=== PATIENT | female | born 1965 | race Caucasian/White ===

== ENCOUNTER 2024-05-10 12:07 | Observation (INO) | payer OTHER, SELFPAY ==
[2024-05-10] VITALS (39 sets, daily range): BP systolic 107–258; BP diastolic 69–113; PULSE 89–122; RESP 11–25; TEMP 36.6–36.8; O2SAT 94–100; BMI 31.5
--- NOTE | ~2024-05-10 | XR_ITS ---
Portable chest x-ray Comparison: None Clinical History: Dizziness Findings: Lungs are clear, without focal consolidation or pleural effusion. Cardiomediastinal silho uette is unremarkable. Bones and soft tissues are unremarkable. Impression: Normal chest. Reviewed, dictated and finalized at location . Impression: Normal chest.
--- NOTE | ~2024-05-10 | CT_ITS ---
EXAMINATION: CTA brain carotid DATE: 05/11/2024 15:06 INDICATION: dizziness, HTN TECHNIQUE: Computed tomographic angiography (CTA) of the head was performed without and with 100 mL O mnipaque-350 intravenous contrast. CTA of the neck was performed with intravenous contrast. Automated exposure control and iterative reconstruction technique were employed. The dose-length product was 1 737.71 mGy-cm. Maximum intensity projection and volume rendered 3D-reconstructions were created by mary jo corbin technologist on a separate workstation. COMPARISON: CT brain 05/10/2024. FINDINGS: CT BRAIN: No acute large vessel infarct, intracranial hemorrhage, mass, or hydrocephalus. Mild atrophy and spool salvager ankur white matter change. Sphenoid air-fluid levels. CTA HEAD: No large vessel occlusion, aneurysm, high flow vascular malformation, nidus or extravasation. Moderat e bilateral cavernous carotid atherosclerotic calcifications. Scattered short segment mild stenoses i n the bilateral proximal MCAs and kindergarten teacher. Persistent origin of the left BALL POINTS INSPECTOR. Calcified bilateral intradural vertebral artery calcifications without severe stenosis. Symmetric parenchymal enhancement . Patent cerebral veins. CTA NECK: Aortic arch and proximal great vessels: Normal arch anatomy. Minimal arch calcification.. Right common carotid, carotid bifurcation, and internal carotid artery: Moderate calcification at the bifurcation.There is 0% stenosis of the proximal right internal carotid artery relative to normal di stal artery lumen diameter (NASCET criteria). Left common carotid, carotid bifurcation, and internal carotid artery: Mild calcification at the bifu rcation.There is 0% stenosis of the proximal left internal carotid artery relative to normal distal a rtery lumen diameter (NASCET criteria). Vertebral arteries: No significant plaque or stenosis. Vertebral arteries co-dominant. Other findings: Periodontal disease. Cervical spondylosis. IMPRESSION: No acute large vessel infarct or intracranial hemorrhage. Sphenoid sinus air-fluid levels, may reflect acute sinusitis in the appropriate clinical context. No large vessel intracranial occlusion, high-grade intracranial stenosis, or aneurysm. No carotid or vertebral artery occlusion, dissection, or significant stenosis. Reviewed, dictated and finalized at location K. IMPRESSION: No acute large vessel infarct or intracranial hemorrhage. Sphenoid sinus air-fluid levels, may reflect acute sinusitis in the appropriate clinical context. No large vessel intracranial occlusion, high-grade intracranial stenosis, or an eurysm. No carotid or vertebral artery occlusion, dissection, or significant stenosis.
--- NOTE | ~2024-05-10 | CT_ITS ---
Non-contrast Head CT History: Dizziness Technique: Axial non-contrast imaging of the brain was performed. Dose reduction technique was used on this scan by utilizing automated exposure control and iterative reconstruction technique. The dose -length product (DLP) was 681.00 mGy-cm. Findings: There is no evidence of intracranial hemorrhage, mass lesion, or acute infarct. Brain par enchyma appears normal. The ventricles and subarachnoid spaces are normal in size. The calvarium ap pears normal. The visualized paranasal sinuses and mastoid air cells are clear. Impression: No significant abnormality seen. Reviewed, dictated and finalized at location . Impression: No significant abnormality seen.
--- NOTE | 2024-05-10 12:08 | ECG_ITS ---
Test Date: 2024-05-10 12:18:03 Measurements Intervals [place] Rate: 118 P: 46 MT: 116 QRS: 8 QRSD: 102 T: 56 QT: 343 QTc: 482 Interpretive Statements SINUS TACHYCARDIA WITH SHORT MT INTERVAL VOLTAGE CRITERIA FOR LVH [MEETS CRITERIA IN ONE OF: R(aVL), S(V1), R(V5), R(V5/V6)+S(V1)] ABNORMAL ECG No previous ECG available for comparison Electronically Signed On 05-13-2024 07:33:02 CDT by Bartolo Rodriguez M.D.
[2024-05-10 12:15] LABS: Glucose Point of Care > 450 mg/dl (65-105)
--- NOTE | 2024-05-10 12:15 | ED.DIZZY ---
HPI - Dizziness General Chief Complaint: Dizziness Stated Complaint: dizzy Time Seen by Provider: 05/10/24 12:08 Source: patient and family Mode of arrival: ambulatory Limitations: no limitations History of Present Illness HPI Narrative: Patient is a 63-year-old female with dizziness for the past 3 days. She comes to the ER for continued symptoms. No neurological complaints. She does have diabetes and hypertension in the past and has not seen a doctor for many years. She has noncompliance with follow-up and medications. She has a history of vertigo. MD elicited complaint: dizziness ( Patient gets dizziness when moving but better when still) and vertigo Pertinent past history: other ( hypertension, diabetes type 2 (noncompliant)) Onset (ago): day(s) (3) Timing: gradual onset Severity: mild Description: sense of movement and room spinning Context: other ( patient is noncompliant with her medications and not seen a doctor for many years) History of similar symptoms: Yes ( history of vertigo) Exacerbating factors: change in body position and other ( noncompliant with medications) Relieving factors: remaining still Associated symptoms: denies other symptoms Related Data Home Medications Medication Instructions Recorded Confirmed carvedilol 6.25 mg tablet 6.25 mg PO Q12H 08/13/19 ferrous sulfate 325 mg (65 mg 325 mg PO BID 08/13/19 iron) tablet Allergies Allergy/AdvReac Type Severity Reaction Status Date / Time ampicillin Allergy Unknown Verified 05/10/24 14:06 Review of Systems Review of Systems: All systems reviewed & are unremarkable except as noted in HPI and below Constitutional: Constitutional: Reports no additional constitutional complaints Eyes: Eyes: Reports no additional eye complaints ENT: Reports system reviewed and no additional complaints, except as documented Cardiovascular: Cardiovascular: Reports no additional cardiovascular complaints Respiratory: Respiratory: Reports no additional respiratory complaints Gastrointestinal: Gastrointestinal: Reports no additional gastrointestinal complaints Genitourinary: Genitourinary: Reports no additional female genitourinary complaints Musculoskeletal: Musculoskeletal: Reports no additional musculoskeletal complaints Integumentary/Breasts: Skin/Breast: Reports system reviewed and no additional complaints, except as docu Neurologic: Reports system reviewed and no additional complaints, except as documented Psychiatric: Psychiatric: Reports no additional psychiatric complaints Endocrine: Endocrine: Reports no additional endocrine complaints Hematologic/Lymphatic: Hematologic/Lymphatic: Reports no additional hematologic/lymphatic complaints Allergic/Immunologic: Allergic/Immunologic: Reports no additional allergic/immunologic complaints [facility] Family History Family History (System 05/10/24 @ 14:06 by Meg Menard) Father Diabetes mellitus Mother Family history of blood dyscrasia Exam Const: General: healthy appearing Nutritional Appearance: well nourished Orientation/consciousness: patient oriented x3 Limitations: no limitations HENMT: Head: normal to inspection Ears: TM's normal bilaterally Face/Nose/Sinus: Normal external nose present Eyes: Conjunctivae: conjunctivae normal Pupils: Equal, round and reactive pupils present EOM: EOMs intact bilaterally Neck: Neck: normal visual inspection Chest: Chest palpation & inspection: normal inspection of the chest Resp: Effort & Inspection: normal respiratory effort and not labored Auscultation: clear to auscultation bilaterally and no crackles Cardio: Rate: tachycardic Rhythm: regular rhythm Heart sounds: no murmurs GI: Inspection: non-distended GI Palp: Yes Soft to palpation, No Tenderness to palpation present (GI) and No Guarding due to palpation present (GI) Auscultation: normal bowel sounds : General: Yes bladder normal to palpation Back/Spine/Pelvis: Back: no CV
[2024-05-10] MEDS: SODIUM CHLORIDE 0.9% IV 1,000 ML 999 ML IV CONT (12:34)
[2024-05-10] MEDS: INSULIN HUMAN REGULAR (*BKC) 1,000 UNITS/10 ML VIAL 8 UNITS IV PUSH (12:37)
--- NOTE | 2024-05-10 12:40 | PC.NURSE ---
ERP notified patient's blood pressure was found 107 systolic. Rechecked and showed 203. Patient's heart rate has decreased and dizziness is resolved. ERP states to hold on blood pressure medication and re-evaluate when patient has been resting for a few minutes after she returns from bathroom and CT.
[2024-05-10 12:50] LABS: Basophils Absolute Auto 0.07 K/mm3 (0.00-0.10); Basophils Percent Auto 0.6 % (0.0-1.0); Eosinophils Absolute Auto 0.31 K/mm3 (0.02-0.50); Eosinophils Percent Auto 2.9 % (1.0-6.0); Hematocrit 44.5 % (35.0-49.0); Hemoglobin 14.1 g/dL (12.0-15.0); Immature Granulocyte Absolute 0.04 K/mm3 (0.00-0.00); Immature Granulocyte Percent A 0.4 % (0.0-0.0); Lymphocytes Absolute Auto 1.73 K/mm3 (1.10-4.50); Mean Corpuscular HGB Conc 31.7 g/dL (32-36); Mean Corpuscular Hemoglobin 29.7 pg (27.0-31.0); Mean Corpuscular Volume 93.7 fL (78.0-102.0); Mean Platelet Volume 12.7 fl (9.2-11.8); Monocytes Absolute Auto 0.78 K/mm3 (0.10-0.90); Monocytes Percent Auto 7.2 % (2.0-11.0); Neutrophils Absolute Auto 7.86 K/mm3 (1.70-7.20); Neutrophils Percent Auto 72.9 % (50.0-70.0); Platelet Count Result 225 K/mm3 (150-420); Red Blood Count 4.75 M/mm3 (4.20-5.40); Red Cell Distribution Width 12.3 % (11.6-14.4); White Blood Count 10.8 K/mm3 (4.8-10.8)
--- NOTE | 2024-05-10 12:57 | PC.NURSE ---
Patient taken down to CT
[2024-05-10 13:00] LABS: Acetone Negative (Negative)
[2024-05-10 13:00] LABS: Add Urine Microscopic? YES; Appearance Urine Clear (Clear); Bilirubin Urine Negative (Negative); Blood Urine Trace-intact (Negative); Color Urine Light Yellow (Yellow); Glucose Urine UA 3+ (Negative); Ketones Urine Trace (Negative); Leukocyte Esterase Ur Negative LEU/UL (Negative); Nitrate Urine Negative (Negative); Protein Urine 2+ (Negative); Urobilinogen Urine 0.2 mg/dL (0.2-1.0); pH Urine 5.5 (5.0-8.0)
[2024-05-10 13:07] LABS: Bacteria Urine Trace /hpf; RBC Urine 0-2 /hpf (0-2); Squamous Epithelial Cell Urine Moderate /hpf (Few); WBC Urine None seen /hpf (0-3)
[2024-05-10 13:09] LABS: Alanine Aminotransferase 30 U/L (14-59); Alkaline Phosphatase 98 U/L (46-116); Anion Gap 10 mmol/L (4-12); Aspartate Amino Transferase 20 U/L (15-37); Bilirubin,Total 0.4 mg/dL (0.00-1.00); Blood Urea Nitrogen 22 mg/dL (7-18); Calcium 9.4 mg/dL (8.5-10.1); Carbon Dioxide 26 mmol/L (21-32); Chloride 98 mmol/L (98-108); Estimated CRCL calculation 37 ml/min; Estimated Glomerular Filt Rate 37; Osmolality Calculated 301 mOsm/kg (285-295); Potassium 3.7 mmol/L (3.5-5.1); Sodium 134 mmol/L (136-145); Troponin I 12.9 ng/L (0.00-60.4)
[2024-05-10 13:10] LABS: Glucose 466 mg/dL (70-99)
[2024-05-10 13:16] LABS: Lactic Acid Reflex 1.5 mmol/L (0.4-2.0)
[2024-05-10 14:20] LABS: Glucose Point of Care 338 mg/dl (65-105)
[2024-05-10 14:20] LABS: Glucose Point of Care 414 mg/dl (65-105)
[2024-05-10 14:35] LABS: Glucose Point of Care 347 mg/dl (65-105)
[2024-05-10 15:40] LABS: Hemoglobin A1C > 13.7 % (<5.7)
--- NOTE | 2024-05-10 16:15 | ADMGEN ---
This patient, Sav Gonsalez, was admitted to 2nd Floor Room 209-1. Patient/family oriented to hospital policies and general routines including ID bracelet, bed and alarms, visiting hours, pain management, procedures, bathroom and other care routines, personal items, smoking policy, room service/diet, and visiting hours. Pt requests info on pcp in the area as she has not seen a doctor since moving here in 2019. Family in room, glasses were left at home. Pt has her phone, pjs and house slippers Information on how to activate the Rapid Response Team has been discussed. Patient/Family are encouraged to report perceived risks to care and to ask questions if they do not understand what they are told or what they should do.
[2024-05-10 16:35] LABS: Glucose Point of Care 317 mg/dl (65-105)
[2024-05-10] MEDS: LOSARTAN POTASSIUM 25 MG TABLET PO (18:32)
[2024-05-10 19:19] LABS: Cholesterol 334 mg/dL (0-200); HDL Direct 49 mg/dL (40-60); LDL Cholesterol Calculated 216 mg/dL (<130); Triglycerides 347 mg/dL (0-150)
[2024-05-10 19:48] LABS: Thyroid Stimulating Hormone 2.24 uIU/mL (0.36-3.74)
[2024-05-10] MEDS: INSULIN GLARGINE (*BKC) 1,000 UNITS/10 ML VIAL 15 UNITS SUB-Q (20:57)
[2024-05-10 21:01] LABS: Glucose Point of Care 341 mg/dl (65-105)
[2024-05-10] MEDS: hydrALAZINE HCL 20 MG/ML VIAL 10 MG IV PUSH (21:03)
[2024-05-11] VITALS (9 sets, daily range): BP systolic 160–189; BP diastolic 77–86; PULSE 84–100; RESP 15–18; TEMP 36.2–36.6; O2SAT 96–98
[2024-05-11] MEDS: LOSARTAN POTASSIUM 25 MG TABLET PO (00:15)
[2024-05-11 00:25] LABS: Glucose Point of Care 300 mg/dl (65-105)
--- NOTE | 2024-05-11 01:12 | PC.NURSE ---
Attempted to contact AUTOMATIC LEHR OPERATOR but was unable to; Message left on voice mail.
[2024-05-11 05:35] LABS: Basophils Absolute Auto 0.05 K/mm3 (0.00-0.10); Basophils Percent Auto 0.6 % (0.0-1.0); Eosinophils Absolute Auto 0.35 K/mm3 (0.02-0.50); Eosinophils Percent Auto 4.1 % (1.0-6.0); Hematocrit 40.7 % (35.0-49.0); Hemoglobin 13.4 g/dL (12.0-15.0); Immature Granulocyte Absolute 0.03 K/mm3 (0.00-0.00); Immature Granulocyte Percent A 0.4 % (0.0-0.0); Lymphocytes Absolute Auto 1.91 K/mm3 (1.10-4.50); Lymphocytes Percent Auto 22.5 % (18.0-42.0); Mean Corpuscular HGB Conc 32.9 g/dL (32-36); Mean Corpuscular Hemoglobin 30.7 pg (27.0-31.0); Mean Corpuscular Volume 93.1 fL (78.0-102.0); Mean Platelet Volume 12.3 fl (9.2-11.8); Monocytes Absolute Auto 0.85 K/mm3 (0.10-0.90); Neutrophils Absolute Auto 5.31 K/mm3 (1.70-7.20); Neutrophils Percent Auto 62.4 % (50.0-70.0); Platelet Count Result 237 K/mm3 (150-420); Red Blood Count 4.37 M/mm3 (4.20-5.40); Red Cell Distribution Width 12.5 % (11.6-14.4); White Blood Count 8.5 K/mm3 (4.8-10.8)
[2024-05-11 06:13] LABS: Alanine Aminotransferase 23 U/L (14-59); Albumin Level 2.6 g/dL (3.4-5.0); Alkaline Phosphatase 80 U/L (46-116); Anion Gap 8 mmol/L (4-12); Aspartate Amino Transferase 11 U/L (15-37); Bilirubin,Total 0.4 mg/dL (0.00-1.00); Blood Urea Nitrogen 16 mg/dL (7-18); Carbon Dioxide 28 mmol/L (21-32); Chloride 104 mmol/L (98-108); Estimated CRCL calculation 47 ml/min; Estimated Glomerular Filt Rate 51; Glucose 275 mg/dL (70-99); Osmolality Calculated 301 mOsm/kg (285-295); Potassium 3.6 mmol/L (3.5-5.1); Sodium 140 mmol/L (136-145); Total Protein 6.2 g/dL (6.4-8.2)
--- NOTE | 2024-05-11 06:30 | PC.NURSE ---
Bernadette Weaver NP, called to get report on pt's condition. Report given and orders received and noted to give 0900 dose of Losarten 50 mg now.
[2024-05-11] MEDS: ACETAMINOPHEN 325 MG TABLET 650 MG PO (06:35)
[2024-05-11] MEDS: LOSARTAN POTASSIUM 25 MG TABLET 50 MG PO (06:35)
--- NOTE | 2024-05-11 08:20 | PM.IMHP ---
H&P: HPI History of Present Illness Date/Time: 05/11/24 08:20 Chief Complaint: dizziness Narrative: This is a 58-year-old female with a past medical history significant for uncontrolled diabetes, stage III CKD, uncontrolled hypertension, hyperlipidemia, and obstructive sleep apnea not on CPAP who presents to the emergency room with complaints of dizziness. The patient provides the following history. Over the last few days she has noticed that she has been having increasing dizziness associated with vision changes. When asked what made her come to the emergency room she said she was having trouble getting her body to do what she wanted it to do. She reports her thoughts were jumbled. She also reports her vision has been oscillating up and down. It was worse yesterday but still persists. She has had a rather persistent headache. Tylenol helps take the edge off but her headache has not resolved. She thought she was having a sinus headache. She denies chest pain, shortness of breath, sore throat, sinus congestion, fever, chills, abdominal pain, diarrhea, or constipation. She did have 1 episode of nausea yesterday related to her dizziness but she did not vomit. She also has chronic pain which she attributes to arthritis. The patient does not currently have a primary care provider. She reports she was being treated for her comorbidities prior to [facility] and since [facility] has been lost to follow-up. She has not been taking any medications. In the emergency room, labs showed normal white count and hemoglobin. Chemistry showed sodium 134, BUN 22, creatinine 1.46, GFR 37, glucose 466, hemoglobin A1c greater than 13.7%, high sensitivity troponin was 12.9, triglycerides 347, total cholesterol 334, LDL 216, HDL 49, TSH was normal, and lactic acid 1.5. Urinalysis showed light clear yellow urine with 2+ protein, 3+ glucose, trace ketones, and trace blood. A head CT was performed and showed no acute abnormality. Chest x-ray showed normal chest and clear lungs. Blood cultures were drawn. EKG showed sinus tachycardia with right atrial enlargement with minimal ST depression. Vital signs on arrival showed a blood pressure of 258/110 mm Hg, sinus tachycardia with a rate 122, 98% pulse ox on room air, respirations 25, and afebrile. In the ED she received Regular insulin 8 units IVP once, Labetalol 10 mg once, and a 1 L bolus of NS. She was admitted to [facility] for observation of hypertensive emergency. Review of Systems Review of Systems: Dizziness, headache, vision changes All systems reviewed & are unremarkable except as noted in HPI and below PMFSH Past Medical History Medical History (Updated 05/11/24 @ 15:40 by Susan Weaver APRN) delivery delivered CKD (chronic kidney disease) stage III Diabetes mellitus type 2, uncontrolled Hyperlipidemia Hypertension, uncontrolled Single live Family History Family History (Updated 05/11/24 @ 15:06 by Susan Weaver APRN) Father Diabetes mellitus Heart disease Mother Family history of blood dyscrasia Heart disease Social History Social History (Updated 05/11/24 @ 15:07 by Susan Weaver APRN) Social History: patient lives at home with her Louie Gonsalez who is her emergency contact. her grandson Wally who is 10 years old also resides with her. Smoking status: Never smoker Second hand tobacco smoke exposure: Yes Alcohol intake: never Substance use: never Substance use type: does not use Do You Feel Safe in your Home?: Yes Lack of Transportation: No Lack of Food: Never True Current Housing: I Have Housing Concerned About Future Housing: No Difficulty Paying Gas/Electric Bills: No Difficulty Paying for Meds: No Currently Unemployed: No Education: High School Diploma/GED Difficulty w/ Childcare or Family Care: No Living arrangements: with family Spiritual care concerns: No
[2024-05-11] MEDS: INSULIN HUMAN LISPRO (*BKC) 1,000 UNITS/10 ML VIAL SUB-Q ×3 (09:23→17:41)
[2024-05-11] MEDS: ATORVASTATIN 40 MG TABLET PO (09:24)
[2024-05-11] MEDS: ENOXAPARIN 40 MG/0.4 ML SYRINGE SUB-Q (09:24)
[2024-05-11] MEDS: ASPIRIN 81 MG ENTERIC TABLET PO (09:24)
[2024-05-11] MEDS: lisinopriL 10 MG TABLET PO (11:38)
[2024-05-11] MEDS: carvediloL 6.25 MG TABLET PO ×2 (11:38→20:15)
[2024-05-11 12:06] LABS: Glucose Point of Care 281 mg/dl (65-105)
--- NOTE | 2024-05-11 14:54 | ECG_ITS ---
Test Date: 2024-05-11 15:27:03 Measurements Intervals [place] Rate: 84 P: 48 GA: 147 QRS: -18 QRSD: 96 T: 16 QT: 390 QTc: 463 Interpretive Statements SINUS RHYTHM VOLTAGE CRITERIA FOR LVH [MEETS CRITERIA IN ONE OF: R(aVL), S(V1), R(V5), R(V5/V6)+S(V1)] POOR PROGRESSION ABNORMAL ECG Compared to ECG 05/10/2024 12:18:03 NO SIGNIFICANT CHANGE Electronically Signed On 05-13-2024 07:34:48 CDT by Bartolo Rodriguez M.D.
[2024-05-11 17:04] LABS: Glucose Point of Care 370 mg/dl (65-105)
[2024-05-11 18:51] LABS: NT Pro B Type Natriuretic Pept 342 pg/mL (0-125)
[2024-05-11] MEDS: INSULIN GLARGINE (*BKC) 1,000 UNITS/10 ML VIAL 15 UNITS SUB-Q (20:15)
[2024-05-11 20:16] LABS: Glucose Point of Care 244 mg/dl (65-105)
[2024-05-12] VITALS (11 sets, daily range): BP systolic 135–176; BP diastolic 76–99; PULSE 69–87; RESP 16–18; TEMP 36.3–36.5; O2SAT 93–98
[2024-05-12 06:12] LABS: Basophils Absolute Auto 0.05 K/mm3 (0.00-0.10); Basophils Percent Auto 0.6 % (0.0-1.0); Eosinophils Absolute Auto 0.48 K/mm3 (0.02-0.50); Eosinophils Percent Auto 6.2 % (1.0-6.0); Hematocrit 41.3 % (35.0-49.0); Hemoglobin 13.2 g/dL (12.0-15.0); Immature Granulocyte Absolute 0.03 K/mm3 (0.00-0.00); Immature Granulocyte Percent A 0.4 % (0.0-0.0); Lymphocytes Absolute Auto 2.33 K/mm3 (1.10-4.50); Mean Corpuscular Hemoglobin 30.2 pg (27.0-31.0); Mean Corpuscular Volume 94.5 fL (78.0-102.0); Mean Platelet Volume 12.1 fl (9.2-11.8); Monocytes Absolute Auto 0.76 K/mm3 (0.10-0.90); Monocytes Percent Auto 9.8 % (2.0-11.0); Neutrophils Absolute Auto 4.11 K/mm3 (1.70-7.20); Platelet Count Result 220 K/mm3 (150-420); Red Blood Count 4.37 M/mm3 (4.20-5.40); Red Cell Distribution Width 12.7 % (11.6-14.4); White Blood Count 7.8 K/mm3 (4.8-10.8)
[2024-05-12 06:30] LABS: Alanine Aminotransferase 21 U/L (14-59); Albumin Level 2.5 g/dL (3.4-5.0); Alkaline Phosphatase 86 U/L (46-116); Anion Gap 4 mmol/L (4-12); Aspartate Amino Transferase 10 U/L (15-37); Bilirubin,Total 0.3 mg/dL (0.00-1.00); Blood Urea Nitrogen 22 mg/dL (7-18); Carbon Dioxide 31 mmol/L (21-32); Chloride 106 mmol/L (98-108); Estimated CRCL calculation 41 ml/min; Estimated Glomerular Filt Rate 44; Glucose 214 mg/dL (70-99); Osmolality Calculated 301 mOsm/kg (285-295); Potassium 3.5 mmol/L (3.5-5.1); Sodium 141 mmol/L (136-145); Total Protein 6.1 g/dL (6.4-8.2)
[2024-05-12] MEDS: INSULIN HUMAN LISPRO (*BKC) 1,000 UNITS/10 ML VIAL SUB-Q ×3 (07:51→17:28)
[2024-05-12] MEDS: ENOXAPARIN 40 MG/0.4 ML SYRINGE SUB-Q (07:52)
[2024-05-12] MEDS: LOSARTAN POTASSIUM 25 MG TABLET 50 MG PO (07:53)
[2024-05-12] MEDS: ATORVASTATIN 40 MG TABLET PO (07:53)
[2024-05-12] MEDS: carvediloL 6.25 MG TABLET PO ×2 (07:53→09:22)
[2024-05-12] MEDS: lisinopriL 10 MG TABLET PO ×2 (07:53→09:22)
[2024-05-12] MEDS: ASPIRIN 81 MG ENTERIC TABLET PO (07:53)
[2024-05-12 11:57] LABS: Glucose Point of Care 257 mg/dl (65-105)
[2024-05-12] MEDS: INSULIN HUMAN LISPRO (*BKC) 1,000 UNITS/10 ML VIAL 4 UNITS SUB-Q ×2 (12:10→17:28)
--- NOTE | 2024-05-12 15:30 | PM.IMPN ---
Progress Note: A&P Assessment and Plan (1) Hypertensive emergency: Code(s): I16.1 - Hypertensive emergency Status: Acute Assessment and Plan: Patient presents with blood pressures 258/110 mmHg, heart rate 120. She is having dizziness, vision changes, confusion, and headache. She was admitted to the medical floor from the ED. CT head non-con on arrival was negative for stroke. She was given IV labetalol 10 mg bringing her blood pressure down to 162/108 mmhg. Cr elevated at 1.46. Blood pressures are ranging 170-190's mmHg. Now past initial 24 hours. Will titrate up oral medications. Started on Losartan 50 mg and blood pressures were still 190 systolic. Increase Coreg 12.5 mg PO BID, increase lisinopril 20 mg daily CTA brain and carotids negative for aneurysm or large vessel occlusion On telemetry, sinus rhythm p.r.n. hydralazine for pressures greater than systolic of 200 mm Hg (2) Diabetes mellitus type 2, uncontrolled: Qualifiers: Glycemic state: with hyperglycemia Qualified Code(s): E11.65 - Type 2 diabetes mellitus with hyperglycemia Status: Acute Assessment and Plan: blood glucose 499 on arrival. Hemoglobin A1c greater than 13.7% a.c. HS Accu-Cheks BG ranging 257-370 Lantus increased to 20 units HS high-dose sliding scale with 4 units TID with meals hypoglycemia protocol diabetic diet needs outpatient diabetic education and nutritional education (3) Hyperlipidemia: Code(s): E78.5 - Hyperlipidemia, unspecified Status: Acute Assessment and Plan: Triglycerides 347, total cholesterol 334, LDL 216, HDL 49 start atorvastatin 40 mg daily (4) CKD (chronic kidney disease): Qualifiers: Chronic kidney disease stage: unspecified stage Qualified Code(s): N18.9 - Chronic kidney disease, unspecified Code(s): N18.9 - Chronic kidney disease, unspecified Status: Acute Assessment and Plan: history of stage 4 chronic kidney disease secondary to hypertension and diabetes creatinine elevated 1.46. Cr today is 1.10 after controlling blood pressure avoid nephrotoxic agents renal dosing of medications (5) Dizziness: Code(s): R42 - Dizziness and giddiness Status: Acute Assessment and Plan: likely secondary to uncontrolled hypertension. she also reports a history of vertigo for which she is previously received meclizine. Dizziness is improving with controlling blood pressures fall precautions CT head non con negative, CTA head and neck was also negative for high-grade occlusion or hemorrhage (6) Headache: Code(s): R51.9 - Headache, unspecified Status: Acute Assessment and Plan: suspect this is also secondary to hypertension. CTA did show chronic sinusitis which could be contributing. patient denies nasal drainage or congestion. No sinus pressure. Tylenol helps take the edge off can try Excedrin (7) Vision changes: Code(s): H53.9 - Unspecified visual disturbance Status: Acute Assessment and Plan: likely retinopathy secondary to severe uncontrolled diabetes compounded by severe hypertension vision changes are improving after improved blood glucose and decreased blood pressure Plan Will have care coordination consult tomorrow and assist with supplies and establishing new PCP Subjective Date/time seen: 05/12/24 15:30 Interval history: No acute events overnight. She says her vision changes and dizziness are nearly resolved. Overall she is anxious to go home. Review of Systems Review of Systems: Dizziness, headache, vision changes All systems reviewed & are unremarkable except as noted in HPI and below Exam Narrative: General: well appearing, appears stated age. HEENT: normocephalic, atraumatic. Mucous membranes moist. EOMI, PERRLA, bilateral sclera anicteric, no conjunctival injection. Neck supple without JVD, lymphadenopat
[2024-05-12 17:13] LABS: Glucose Point of Care 278 mg/dl (65-105)
[2024-05-12 20:33] LABS: Glucose Point of Care 273 mg/dl (65-105)
[2024-05-12] MEDS: INSULIN GLARGINE (*BKC) 1,000 UNITS/10 ML VIAL 20 UNITS SUB-Q (20:34)
[2024-05-12] MEDS: carvediloL 12.5 MG TABLET PO (20:34)
[2024-05-13 06:59] LABS: Basophils Absolute Auto 0.07 K/mm3 (0.00-0.10); Basophils Percent Auto 0.9 % (0.0-1.0); Eosinophils Absolute Auto 0.46 K/mm3 (0.02-0.50); Hematocrit 40.3 % (35.0-49.0); Immature Granulocyte Absolute 0.03 K/mm3 (0.00-0.00); Immature Granulocyte Percent A 0.4 % (0.0-0.0); Lymphocytes Absolute Auto 1.96 K/mm3 (1.10-4.50); Lymphocytes Percent Auto 25.5 % (18.0-42.0); Mean Corpuscular HGB Conc 32.3 g/dL (32-36); Mean Corpuscular Hemoglobin 30.4 pg (27.0-31.0); Mean Corpuscular Volume 94.2 fL (78.0-102.0); Mean Platelet Volume 12.5 fl (9.2-11.8); Monocytes Absolute Auto 0.73 K/mm3 (0.10-0.90); Monocytes Percent Auto 9.5 % (2.0-11.0); Neutrophils Absolute Auto 4.44 K/mm3 (1.70-7.20); Neutrophils Percent Auto 57.7 % (50.0-70.0); Platelet Count Result 231 K/mm3 (150-420); Red Blood Count 4.28 M/mm3 (4.20-5.40); Red Cell Distribution Width 12.9 % (11.6-14.4); White Blood Count 7.7 K/mm3 (4.8-10.8)
[2024-05-13 07:16] LABS: Alanine Aminotransferase 24 U/L (14-59); Albumin Level 2.5 g/dL (3.4-5.0); Alkaline Phosphatase 81 U/L (46-116); Anion Gap 7 mmol/L (4-12); Aspartate Amino Transferase 14 U/L (15-37); Bilirubin,Total 0.3 mg/dL (0.00-1.00); Blood Urea Nitrogen 22 mg/dL (7-18); Calcium 9.2 mg/dL (8.5-10.1); Carbon Dioxide 27 mmol/L (21-32); Chloride 107 mmol/L (98-108); Estimated CRCL calculation 41 ml/min; Estimated Glomerular Filt Rate 43; Glucose 177 mg/dL (70-99); Osmolality Calculated 299 mOsm/kg (285-295); Potassium 3.8 mmol/L (3.5-5.1); Sodium 141 mmol/L (136-145)
[2024-05-13 08:00] VITALS: BP 178/96; PULSE 81; RESP 18; TEMP 36.4; O2SAT 98
[2024-05-13] MEDS: ASPIRIN 81 MG ENTERIC TABLET PO (08:37)
[2024-05-13] MEDS: ATORVASTATIN 40 MG TABLET PO (08:37)
[2024-05-13] MEDS: LOSARTAN POTASSIUM 25 MG TABLET 50 MG PO (08:37)
[2024-05-13] MEDS: ENOXAPARIN 40 MG/0.4 ML SYRINGE SUB-Q (08:37)
[2024-05-13 08:38] VITALS: PULSE 81
[2024-05-13] MEDS: carvediloL 12.5 MG TABLET PO (08:38)
[2024-05-13] MEDS: lisinopriL 20 MG TABLET PO (08:38)
[2024-05-13] MEDS: INSULIN HUMAN LISPRO (*BKC) 1,000 UNITS/10 ML VIAL 4 UNITS SUB-Q ×2 (08:39→12:19)
--- NOTE | 2024-05-13 09:03 | PM.DS ---
DS: Admitting Diagnosis Discharge Date 05/13 Admitting Diagnosis dizziness, vision change DS: Discharge Diagnosis Discharge Diagnosis (1) Hypertensive emergency: Code(s): I16.1 - Hypertensive emergency Status: Acute Assessment and Plan: Patient presents with blood pressures 258/110 mmHg, heart rate 120. She is having dizziness, vision changes, confusion, and headache. She was admitted to the medical floor from the ED. CT head non-con on arrival was negative for stroke. She was given IV labetalol 10 mg bringing her blood pressure down to 162/108 mmhg. Cr elevated at 1.46. Blood pressures are ranging 170-190's mmHg. Now past initial 24 hours. Will titrate up oral medications. Started on Losartan 50 mg and blood pressures were still 190 systolic. Increase Coreg 12.5 mg PO BID, increase lisinopril 20 mg daily CTA brain and carotids negative for aneurysm or large vessel occlusion On telemetry, sinus rhythm p.r.n. hydralazine for pressures greater than systolic of 200 mm Hg (2) Diabetes mellitus type 2, uncontrolled: Qualifiers: Glycemic state: with hyperglycemia Qualified Code(s): E11.65 - Type 2 diabetes mellitus with hyperglycemia Status: Acute Assessment and Plan: blood glucose 499 on arrival. Hemoglobin A1c greater than 13.7% a.c. HS Accu-Cheks BG ranging 257-370 Lantus increased to 20 units HS high-dose sliding scale with 4 units TID with meals hypoglycemia protocol diabetic diet needs outpatient diabetic education and nutritional education (3) Hyperlipidemia: Code(s): E78.5 - Hyperlipidemia, unspecified Status: Acute Assessment and Plan: Triglycerides 347, total cholesterol 334, LDL 216, HDL 49 start atorvastatin 40 mg daily (4) CKD (chronic kidney disease): Qualifiers: Chronic kidney disease stage: unspecified stage Qualified Code(s): N18.9 - Chronic kidney disease, unspecified Code(s): N18.9 - Chronic kidney disease, unspecified Status: Acute Assessment and Plan: history of stage 4 chronic kidney disease secondary to hypertension and diabetes creatinine elevated 1.46. Cr today is 1.10 after controlling blood pressure avoid nephrotoxic agents renal dosing of medications (5) Dizziness: Code(s): R42 - Dizziness and giddiness Status: Acute Assessment and Plan: likely secondary to uncontrolled hypertension. she also reports a history of vertigo for which she is previously received meclizine. Dizziness is improving with controlling blood pressures fall precautions CT head non con negative, CTA head and neck was also negative for high-grade occlusion or hemorrhage (6) Headache: Code(s): R51.9 - Headache, unspecified Status: Acute Assessment and Plan: suspect this is also secondary to hypertension. CTA did show chronic sinusitis which could be contributing. patient denies nasal drainage or congestion. No sinus pressure. Tylenol helps take the edge off can try Excedrin (7) Vision changes: Code(s): H53.9 - Unspecified visual disturbance Status: Acute Assessment and Plan: likely retinopathy secondary to severe uncontrolled diabetes compounded by severe hypertension vision changes are improving after improved blood glucose and decreased blood pressure Plan Will have care coordination consult tomorrow and assist with supplies and establishing new PCP DS: Summary Hospital Course Reason for hospitalization: hypertension emergency Hospital Course: This is a 58-year-old female with a past medical history significant for uncontrolled diabetes, stage III CKD, uncontrolled hypertension, hyperlipidemia, and obstructive sleep apnea not on CPAP who presents to the emergency room with complaints of dizziness. The patient provides the following history. Over the last few days she has noticed that she has been having increasing
[2024-05-13 12:12] LABS: Glucose Point of Care 284 mg/dl (65-105)
[2024-05-13] MEDS: INSULIN HUMAN LISPRO (*BKC) 1,000 UNITS/10 ML VIAL SUB-Q (12:20)
--- NOTE | 2024-05-13 12:25 | PC.NURSE ---
Discharge instructions reviewed with patient and spouse, insulin administration reviewed as well. Patient and spouse verbalize understanding. Patient taken off floor per wheelchair
--- NOTE | 2024-05-15 12:15 | PC.NURSE ---
Discharge call back completed, no questions regarding dc instructions, see PMD tomorrow for follow up
== END 2024-05-13 12:25 | disposition home or self-care (01) ==
LOC: CHSED 14:19 → CHS2ND 15:22
PROVIDERS: Nurse Practitioner Acute Care; Admitting Provider Internal Medicine; Emergency Provider Emergency Medicine; Visit Provider Nurse Practitioner Acute Care
DX: I16.1 Hypertensive emergency (principal); R42 Dizziness and giddiness; R51.9 Headache, unspecified; H53.9 Unspecified visual disturbance; E11.65 Type 2 diabetes mellitus with hyperglycemia; I12.9 Hypertensive chronic kidney disease with stage 1 through stage 4 chronic kidney disease, or unspecified chronic kidney disease; E11.22 Type 2 diabetes mellitus with diabetic chronic kidney disease; N18.30 Chronic kidney disease, stage 3 unspecified; E78.5 Hyperlipidemia, unspecified; G47.33 Obstructive sleep apnea (adult) (pediatric); Z91.148 Patient's other noncompliance with medication regimen for other reason; Z91.199 Patient's noncompliance with other medical treatment and regimen due to unspecified reason; Z79.84 Long term (current) use of oral hypoglycemic drugs
CPT/HCPCS: 36415; 70450; 70496; 70498; 71045; 80053; 80061; 81001; 82010; 82948; 83036; 83605; 83880; 84443; 84484; 85025; 87040; 93005; 96361; 96372; 96374; 96375; 99285; A9270; G0378; J0360; J1650; J1815; J7030; Q9967

== ENCOUNTER 2024-08-27 08:18 | Outpatient (CLI) | payer OTHER, SELFPAY ==
--- NOTE | ~2024-08-27 | MM_ITS ---
EXAMINATION: MM screening patricia BI w iss[facility] HISTORY: Screening TECHNIQUE: Craniocaudal and mediolateral oblique 3-D tomosynthesis images were obtained and synthetic 2-D images were generated. CAD analysis was submitted and interpreted. COMPARISON: No prior mammogram is available for comparison at this institution. BREAST PARENCHYMAL COMPOSITION: Not Dense: The breasts are almost entirely fatty. FINDINGS: There is no evidence of suspicious mass, calcification, or architectural distortion to sugg est malignancy in either breast. There has been no suspicious interval change. IMPRESSION: 1. No mammographic evidence of malignancy. 2. Recommend routine screening mammography in one year. BI-RADS Category 1: Negative Reviewed, dictated and finalized at location A. ORK OPERATIONS TECHNICIAN
--- OUTSIDE RECORDS SUMMARY | 2024-08-29 16:06 | XMS_ITS | CONTINUITY OF CARE DOCUMENT ---
Author Name asia betancourt Address Unknown Organization [facility] Address [id number] [place] [address] [address] [place] [address] Phone [phone] Care Team Providers Care Fish And Wildlife Biologist Name Role Phone Royal Martins MD Unavailable BLANCA KAUR DO Unavailable PROBLEMS Condition Status Date Provider Notes HTN active Cheryl Wu INSURANCE PROVIDERS Payer name Policy type / Coverage type Carlos red constitution party ID [employer] [facility] Other [id number] TREATMENT PLAN Date Name Complete Echo
== END 2024-08-27 08:19 | disposition home or self-care (01) ==
LOC: CHSIMG 08:20
PROVIDERS: PCP Nurse Practitioner Family; Visit Provider Nurse Practitioner Family
DX: Z12.31 Encounter for screening mammogram for malignant neoplasm of breast (principal)
CPT/HCPCS: 77063; 77067

== ENCOUNTER 2025-06-02 09:50 | Outpatient (CLI) | payer OTHER, SELFPAY ==
[2025-06-02 10:01] LABS: Hematocrit 35.7 % (35.0-49.0); Hemoglobin 11.2 g/dL (12.0-15.0); Immature Granulocyte Percent A 0.2 % (0.0-0.0); Lymphocytes Absolute Auto 2.19 K/mm3 (1.10-4.50); Mean Corpuscular HGB Conc 31.4 g/dL (32-36); Mean Corpuscular Hemoglobin 30.9 pg (27.0-31.0); Mean Corpuscular Volume 98.6 fL (78.0-102.0); Nucleated Red Blood Cells Absolute Auto 0.00 K/mm3 (0.00-0.00); Nucleated Red Blood Cells Perc 0.0 % (0-0.0); Platelet Count Result 323 K/mm3 (150-420); Red Blood Count 3.62 M/mm3 (4.20-5.40); White Blood Count 10.4 K/mm3 (4.8-10.8)
[2025-06-02 10:21] LABS: Iron 84 ug/dL (37-170)
[2025-06-02 10:23] LABS: Alanine Aminotransferase 14 U/L (6-35); Albumin Level 4.2 g/dL (3.5-5.1); Alkaline Phosphatase 75 U/L (38-126); Anion Gap 7 mmol/L (4-12); Aspartate Amino Transferase 19 U/L (14-36); Bilirubin,Total 0.6 mg/dL (0.2-1.3); Blood Urea Nitrogen 52 mg/dL (7-17); Calcium 10.5 mg/dL (8.4-10.2); Carbon Dioxide 20 mmol/L (22-30); Chloride 111 mmol/L (98-107); Cholesterol 241 mg/dL (0-200); Estimated Glomerular Filt Rate 36; Glucose 136 mg/dL (65-110); HDL Direct 74 mg/dL; Osmolality Calculated 302 mOsm/kg (285-295); Potassium 5.5 mmol/L (3.4-5.0); Sodium 138 mmol/L (137-145); Total Protein 8.1 g/dL (6.3-8.2); Triglycerides 143 mg/dL (<150)
[2025-06-02 10:28] LABS: Hemoglobin A1C 8.3 % (<5.7)
[2025-06-02 10:30] LABS: Percent Iron Saturation 38 % (20-50)
[2025-06-02 10:57] LABS: Ferritin 79.40 ng/mL (11.1-264)
== END 2025-06-02 09:51 | disposition home or self-care (01) ==
LOC: CHSLAB 09:53
PROVIDERS: PCP Nurse Practitioner Family; Visit Provider Nurse Practitioner Family
DX: Z13.6 Encounter for screening for cardiovascular disorders (principal); E78.5 Hyperlipidemia, unspecified; I10 Essential (primary) hypertension; E11.9 Type 2 diabetes mellitus without complications; Z79.899 Other long term (current) drug therapy; D64.9 Anemia, unspecified
CPT/HCPCS: 36415; 80053; 80061; 82306; 82728; 83036; 83540; 83550; 85025

== ENCOUNTER 2025-06-09 12:00 | Outpatient (CLI) | payer OTHER, SELFPAY ==
[2025-06-09 12:25] LABS: Alanine Aminotransferase 15 U/L (6-35); Albumin Level 4.4 g/dL (3.5-5.1); Alkaline Phosphatase 83 U/L (38-126); Anion Gap 11 mmol/L (4-12); Aspartate Amino Transferase 25 U/L (14-36); Bilirubin,Total 1.4 mg/dL (0.2-1.3); Blood Urea Nitrogen 45 mg/dL (7-17); Calcium 10.0 mg/dL (8.4-10.2); Carbon Dioxide 22 mmol/L (22-30); Chloride 105 mmol/L (98-107); Estimated Glomerular Filt Rate 37; Glucose 184 mg/dL (65-110); Osmolality Calculated 302 mOsm/kg (285-295); Potassium 5.4 mmol/L (3.4-5.0); Sodium 138 mmol/L (137-145); Total Protein 7.1 g/dL (6.3-8.2)
[2025-06-09 12:36] LABS: Add Urine Microscopic? YES; Appearance Urine Clear (Clear); Glucose Urine UA Negative (Negative); Leukocyte Esterase Ur Trace LEU/UL (Negative); Nitrate Urine Negative (Negative); Specific Grav Ur <= 1.005 (1.010-1.020)
[2025-06-09 12:50] LABS: MALB Creatinine Ratio 257.7 mg/g (0-30)
== END 2025-06-09 12:01 | disposition home or self-care (01) ==
PROVIDERS: PCP Nurse Practitioner Family; Visit Provider Nurse Practitioner Family
DX: E87.5 Hyperkalemia (principal); E11.9 Type 2 diabetes mellitus without complications; Z87.898 Personal history of other specified conditions
CPT/HCPCS: 36415; 80053; 81001; 82043

== ENCOUNTER 2025-06-18 15:14 | Outpatient (CLI) | payer OTHER, SELFPAY ==
[2025-06-18 15:27] LABS: Hematocrit 35.2 % (35.0-49.0); Hemoglobin 11.3 g/dL (12.0-15.0); Immature Granulocyte Percent A 0.4 % (0.0-0.0); Lymphocytes Absolute Auto 1.75 K/mm3 (1.10-4.50); Mean Corpuscular HGB Conc 32.1 g/dL (32-36); Mean Corpuscular Hemoglobin 30.4 pg (27.0-31.0); Mean Corpuscular Volume 94.6 fL (78.0-102.0); Nucleated Red Blood Cells Absolute Auto 0.00 K/mm3 (0.00-0.00); Nucleated Red Blood Cells Perc 0.0 % (0-0.0); Platelet Count Result 318 K/mm3 (150-420); Red Blood Count 3.72 M/mm3 (4.20-5.40); White Blood Count 12.5 K/mm3 (4.8-10.8)
[2025-06-18 15:45] LABS: Alanine Aminotransferase 22 U/L (6-35); Albumin Level 4.5 g/dL (3.5-5.1); Alkaline Phosphatase 82 U/L (38-126); Anion Gap 15 mmol/L (4-12); Aspartate Amino Transferase 24 U/L (14-36); Blood Urea Nitrogen 57 mg/dL (7-17); Calcium 10.3 mg/dL (8.4-10.2); Carbon Dioxide 23 mmol/L (22-30); Chloride 103 mmol/L (98-107); Estimated Glomerular Filt Rate 31; Glucose 202 mg/dL (65-110); Osmolality Calculated 313 mOsm/kg (285-295); Potassium 3.8 mmol/L (3.4-5.0); Sodium 141 mmol/L (137-145); Total Protein 7.4 g/dL (6.3-8.2)
[2025-06-24 13:07] LABS: Bilirubin,Total 0.2 mg/dL (0.2-1.3)
== END 2025-06-18 15:15 | disposition home or self-care (01) ==
LOC: CHSLAB 15:15
PROVIDERS: PCP Nurse Practitioner Family; Visit Provider Nurse Practitioner Family
DX: E87.5 Hyperkalemia (principal); I10 Essential (primary) hypertension
CPT/HCPCS: 36415; 80053; 85025

== ENCOUNTER 2025-06-20 10:27 | Emergency (ER) | payer OTHER, SELFPAY ==
[2025-06-20 10:27] VITALS: BP 180/86; PULSE 95; RESP 16; TEMP 36.8; O2SAT 98
--- NOTE | 2025-06-20 10:34 | ED_ITS ---
HPI - Recheck/Abnormal Lab/Rx General Chief Complaint: Recheck/Abnormal Lab/Rx Stated Complaint: abnormal labs Time Seen by Provider: 06/20/25 10:34 Source: patient and family Mode of arrival: ambulatory Limitations: no limitations History of Present Illness HPI narrative: Patient is a 59-year-old female with elevated creatinine and BUN with blood work done 2 days ago. Patient has been having elevated blood pressure and known hypertension with medication adjustments recently with the primary doctor. She was on lisinopril but off of it for 10 days now per the doctor orders. She had hyperkalemia which has resolved. Also her diuretic was pulled with elevated creatinine. Patient for not and took that today however accidentally. She was recently started on clonidine which she took today. She has no symptoms today. No chest pain or shortness of breath. No nausea vomiting or diarrhea. She had blood work repeated 2 days ago and was sent to the emergency room yesterday however she did not go until today. MD complaint: abnormal lab Initial visit (ago): day(s) ( Two) Initial visit for: other ( hypertension and medication adjustments) Returns today for: called because of abnormal lab/test Description of abnormal result: KODI with medication adjustments for blood pressure Symptoms since prior visit: no new symptoms ( asymptomatic) Context: called for abnormal lab result Associated symptoms: none Treatments prior to arrival: other ( adjustments of her blood pressure medicine) Related Data Allergies Allergy/AdvReac Type Severity Reaction Status Date / Time ampicillin Allergy Unknown Unknown Verified 06/18/25 14:55 Review of Systems 2 Review of Systems: All systems reviewed & are unremarkable except as noted in HPI and below Constitutional: Constitutional: Reports no additional constitutional complaints Eyes: Eyes: Reports no additional eye complaints ENT: Reports system reviewed and no additional complaints, except as documented Cardiovascular: Cardiovascular: Reports no additional cardiovascular complaints Respiratory: Respiratory: Reports no additional respiratory complaints Gastrointestinal: Gastrointestinal: Reports no additional gastrointestinal complaints Genitourinary: Genitourinary: Reports no additional female genitourinary complaints Musculoskeletal: Musculoskeletal: Reports no additional musculoskeletal complaints Integumentary/Breasts: Skin/Breast: Reports system reviewed and no additional complaints, except as docu Neurologic: Reports system reviewed and no additional complaints, except as documented Psychiatric: Psychiatric: Reports no additional psychiatric complaints Endocrine: Endocrine: Reports no additional endocrine complaints Hematologic/Lymphatic: Hematologic/Lymphatic: Reports no additional hematologic/lymphatic complaints Allergic/Immunologic: Allergic/Immunologic: Reports no additional allergic/immunologic complaints PMFSH Past Medical History Medical History delivery delivered Single live Hyperlipidemia CKD (chronic kidney disease) stage III Hypertension, uncontrolled Diabetes mellitus type 2, uncontrolled Family History Family History Father Diabetes mellitus Heart disease Mother Family history of blood dyscrasia Heart disease Social History Social History Social History: patient lives at home with her Louie Gonsalez who is her emergency contact. her grandson Wally who is 10 years old also resides with her. Smoking status: Never smoker Second hand tobacco smoke exposure: Yes Alcohol intake: never Substance use: never Substance use type: does not use Do You Feel Safe in your Home?: Yes Lack of Transportation: No Lack of Food: Never True Current Housing: I Have Housing Concerned About Future Housing: No Difficulty Paying Gas/Electric Bills: No Difficulty Paying for Meds: No Currently Unemployed: No Education: High School Diploma/GED Difficulty w/ Childcare or Family Care: No Living arrangements: with family Gender identity (if verbalized by the patient): Female Spiritual care concerns: No Exam 2 Const: General: healthy appearing Nutritional Appearance: well nourished Orientation/consciousness: patient oriented x3 HENMT: Head: normal to inspection Ears: external ears normal F ozzy/Nose/Sinus: Normal external nose present Eyes: Conjunctivae: conjunctivae normal Pupils: Equal, round and reactive pupils present EOM: EOMs intact bilaterally Neck: Neck: normal visual inspection Chest: Chest palpation & inspection: normal inspection of the chest Resp: Effort & Inspection: normal respiratory effort and not labored A uscultation: clear to auscultation bilaterally and no crackles Cardio: Rate: regular rate Rhythm: regular rhythm Heart sounds: no murmurs GI: Inspection: non-distended GI Palp: Yes Soft to palpation, No Tenderness to palpation present (GI), No Guarding due to palpation present (GI), No Rigid due to palpation, No Hernia present, No Palpable mass present and No Rebound tenderness present Auscultation: normal bowel sounds : General: Yes bladder normal to palpation Back/Spine/Pelvis: Back: no CVA tenderness Skin: General skin exam: normal color Rashes: no rashes Wounds: no wounds Neuro: General: patient oriented x3, moves all extremities and no meningeal signs Extrem: General: normal to inspection, no clubbing, cyanosis or edema and no pedal edema Psych: Mental Status: mental status grossly normal Affect: normal affect Attitude: cooperative Course Vital Signs Vital signs: Vital Signs Temperature 36.8 C 06/20/25 10:27 Pulse Rate 95 06/20/25 10:27 Respiratory Rate 16 06/20/25 10:27 Blood Pressure 180/86 H 06/20/25 10:27 Pulse Oximetry 98 06/20/25 10:27 Oxygen Delivery Room Air 06/20/25 10:27 Temperature 36.8 C 06/20/25 10:27 Pulse Rate 95 06/20/25 10:27 Respiratory Rate 16 06/20/25 10:27 Blood Pressure 180/86 H 06/20/25 10:27 Pulse Oximetry 98 06/20/25 10:27 Oxygen Delivery Room Air 06/20/25 10:27 MDM - Recheck/Abnormal Lab/Rx MDM Narrative Medical decision making narrative: patient is a 59-year-old female with abnormal labs to include a creatinine level and a BUN level that of elevated over the past short bit of time. Patient sent to the ER for evaluation. Recheck labs as they are 2-day-old at this point. Rechecking of labs shows baseline level values. Urinalysis was checked for the elevated WBC minimally. Blood pressure is better now. She is now on clonidine. Patient needs to be referred to a house admin for further continued following of her creatinine and BUN with chronic elevations. continue blood pressure planning with the primary doctor. Lab Data Attestation: I reviewed the patient's lab results. 06/20/25 10:55 06/20/25 10:55 Labs: Lab Results 06/20/25 06/20/25 Range/Units 10:55 11:40 WBC 11.6 H (4.8-10.8) K/mm3 RBC 3.71 L (4.20-5.40) M/mm3 Hgb 11.3 L (12.0-15.0) g/dL Hct 35.1 (35.0-49.0) % MCV 94.6 (78.0-102.0) fL MCH 30.5 (27.0-31.0) pg MCHC 32.2 (32-36) g/dL RDW 12.8 (11.6-14.4) % Plt Count 322 (150-420) K/mm3 MPV 12.6 H (9.2-11.8) fl Immature Gran % (Auto) 0.5 H (0.0-0.0) % Neut % (Auto) 68.4 (50.0-70.0) % Lymph % (Auto) 16.6 L (18.0-42.0) % [place] % (Auto) 10.5 (2.0-11.0) % Eos % (Auto) 3.7 (1.0-6.0) % Baso % (Auto) 0.3 (0.0-1.0) % Lymph # (Auto) 1.93 (1.10-4.50) K/mm3 [place] # (Auto) 1.22 H (0.10-0.90) K/mm3 Eos # (Auto) 0.43 (0.02-0.50) K/mm3 Baso # (Auto) 0.04 (0.00-0.10) K/mm3 Abs Immat Gran (auto) 0.06 H (0.00-0.00) K/mm3 Absolute Neuts (auto) 7.93 H (1.70-7.20) K/mm3 Absolute Nucleated RBC 0.00 (0.00-0.00) K/mm3 Nucleated RBC % 0.0 (0-0.0) % Sodium 142 (137-145) mmol/L Potassium 3.4 (3.4-5.0) mmol/L Chloride 105 (98-107) mmol/L Carbon Dioxide 25 (22-30) mmol/L Anion Gap 12 (4-12) mmol/L BUN 56 H (7-17) mg/dL Creatinine 1.53 H (0.7-1.0) mg/dL Estim Creat Clear Calc 36 ml/min Estimated GFR 35 L (59 - ) Glucose 120 H (65-110) mg/dL Calculated Osmolality 310 H (285-295) mOsm/kg Lactic Acid 1.0 (0.7-2.0) mmol/L Calcium 10.0 (8.4-10.2) mg/dL Magnesium 1.9 (1.6-2.3) mg/dL Total Bilirubin 1.2 (0.2-1.3) mg/dL AST 23 (14-36) U/L ALT 19 (6-35) U/L Alkaline Phosphatase 72 (38-126) U/L Troponin I < 0.012 (0.000-0.034) ng/mL Total Protein 7.8 (6.3-8.2) g/dL Albumin 4.5 (3.5-5.1) g/dL Urine Color Pending Urine Appearance Pending Urine pH Pending Ur Specific [place] Pending Urine Protein Pending Urine Glucose (UA) Pending Urine Ketones Pending Ur Blood (Man) Pending Urine Nitrate Pending Urine Bilirubin Pending Urine Urobilinogen Pending Leukocyte Esterase Rfl Pending ECG Data EKG #1: Attestation: I personally reviewed and interpreted this ECG as follows: ECG completion date: 06/20/25 ECG completion time: 10:52 EKG Interpretation: normal rate, sinus rhythm, no ectopy, non-specific ST changes, normal QRS, normal QT and left axis Discharge Plan Discharge Clinical Impression: CKD (chronic kidney disease) Patient Disposition: Home Condition: Stable Instructions: Chronic Kidney Disease (ED) Additional Instructions: please follow-up with the primary doctor in the next week. You will need referral to a house admin which is a kidney specialist to follow your kidney values. Follow-up with the primary doctor for your blood pressure control. Patient Language: Pashto Prescriptions: No Action aspirin 81 mg Tablet,Delayed Release (Dr/Ec) 81 mg PO QAM Qty: 90 0RF (DME) blood-glucose meter [OneTouch Verio Flex meter] [facility] [place] Qty: 1 0RF Rx Instructions: May substitute to in-stock meter and/or covered by insurance. Use As Directed (DME) OneTouch Verio test strips Strip Qty: 1 0RF Rx Instructions: May substitute to in-stock and/or covered by insurance strips. Use As Directed (DME) lancets [OneTouch Delica Plus Lancet] 30 gauge misc Qty: 1 0RF Rx Instructions: May substitute to in-stock and/or covered by insurance lancets. Use As Directed ferrous sulfate 325 mg (65 mg iron) tablet 325 mg PO BID Qty: 180 0RF Patient Comments: has not taken since 2019 loratadine [Allergy Relief (loratadine)] 10 mg tablet 10 mg PO DAILY Qty: 30 2RF atorvastatin 40 mg tablet 40 mg PO DAILY Qty: 90 3RF insulin lispro 200 unit/mL (3 mL) insulin pen See Rx Instructions .ROUTE .COMPLEX MDD 35 Qty: 6 1RF Rx Instructions: Glucose less than 150 mg/dl-------no insulin glucose 151-200------3 units sub-q glucose 201-250------4 units sub-q glucose 251-300------5 units sub-q glucose 301-350------6 units sub-q glucose 351-400------7 units sub-q glucose greater than 401----call your primary care provider for further instructions. clonidine HCl 0.1 mg tablet 0.1 mg PO Q12H Qty: 60 1RF insulin glargine [Lantus Solostar U-100 Insulin] 100 unit/mL (3 mL) insulin pen 24 unit subcut QPM Qty: 15 1RF lisinopril 40 mg tablet 40 mg PO DAILY Qty: 90 3RF (DME) pen needle, diabetic [BD Ultra-Fine Jasmin Pen Needle] 32 gauge x 5/32 needle Qty: 1 6RF Rx Instructions: QID: May substitute to meet patient needs (DME) pen needle, diabetic [BD Ultra-Fine Mini Pen Needle] 31 gauge x 3/16 needle See Rx Instructions .Route Qty: 100 2RF Rx Instructions: TID with meals carvedilol [Coreg] 12.5 mg tablet 12.5 mg PO Q12HR Qty: 180 0RF chlorthalidone 25 mg tablet See Rx Instructions .ROUTE .COMPLEX Qty: 30 2RF Dose Instruction: Take 1 tablet by mouth once daily Rx Instructions: Take 1 tablet by mouth once daily amlodipine 10 mg tablet See Rx Instructions .ROUTE .COMPLEX Qty: 90 1RF Dose Instruction: Take 1 tablet by mouth once daily Rx Instructions: Take 1 tablet by mouth once daily Follow-up/Referrals: Erin Olvera NP [Primary Care Provider, [facility]] Time of Disposition: 11:57
--- NOTE | 2025-06-20 10:43 | ECG_ITS ---
Test Date: 2025-06-20 10:52:31 Measurements Intervals [place] Rate: 87 P: 54 AK: 147 QRS: -5 QRSD: 98 T: 21 QT: 381 QTc: 460 Interpretive Statements SINUS RHYTHM MODERATE VOLTAGE CRITERIA FOR LVH, CONSIDER NORMAL VARIANT [MEETS CRITERIA IN ONE OF: R(aVL), S(V1), R(V5), R(V5/V6)+S(V1)] NONSPECIFIC ST & T-WAVE ABNORMALITY ABNORMAL ECG Compared to ECG 05/11/2024 15:27:03 NO SIGNIFICANT CHANGE Electronically Signed On 06-20-2025 13:31:57 [employer] by Bartolo Rodriguez M.D.
[2025-06-20 11:01] LABS: Hematocrit 35.1 % (35.0-49.0); Hemoglobin 11.3 g/dL (12.0-15.0); Immature Granulocyte Percent A 0.5 % (0.0-0.0); Lymphocytes Absolute Auto 1.93 K/mm3 (1.10-4.50); Mean Corpuscular HGB Conc 32.2 g/dL (32-36); Mean Corpuscular Hemoglobin 30.5 pg (27.0-31.0); Mean Corpuscular Volume 94.6 fL (78.0-102.0); Nucleated Red Blood Cells Absolute Auto 0.00 K/mm3 (0.00-0.00); Nucleated Red Blood Cells Perc 0.0 % (0-0.0); Platelet Count Result 322 K/mm3 (150-420); Red Blood Count 3.71 M/mm3 (4.20-5.40); White Blood Count 11.6 K/mm3 (4.8-10.8)
[2025-06-20 11:16] LABS: Alanine Aminotransferase 19 U/L (6-35); Albumin Level 4.5 g/dL (3.5-5.1); Alkaline Phosphatase 72 U/L (38-126); Anion Gap 12 mmol/L (4-12); Aspartate Amino Transferase 23 U/L (14-36); Blood Urea Nitrogen 56 mg/dL (7-17); Calcium 10.0 mg/dL (8.4-10.2); Carbon Dioxide 25 mmol/L (22-30); Chloride 105 mmol/L (98-107); Estimated CRCL calculation 36 ml/min; Estimated Glomerular Filt Rate 35; Glucose 120 mg/dL (65-110); Magnesium 1.9 mg/dL (1.6-2.3); Osmolality Calculated 310 mOsm/kg (285-295); Potassium 3.4 mmol/L (3.4-5.0); Sodium 142 mmol/L (137-145); Total Protein 7.8 g/dL (6.3-8.2)
[2025-06-20 11:28] LABS: Troponin I < 0.012 ng/mL (0.000-0.034)
[2025-06-20 11:49] LABS: Add Urine Microscopic? YES; Appearance Urine Clear (Clear); Glucose Urine UA Negative (Negative); Leukocyte Esterase Ur Negative LEU/UL (Negative); Nitrate Urine Negative (Negative); Specific Grav Ur <= 1.005 (1.010-1.020)
[2025-06-20 12:06] VITALS: BP 139/68; PULSE 78; RESP 20; O2SAT 98
[2025-06-24 13:51] LABS: Bilirubin,Total 0.2 mg/dL (0.2-1.3)
== END 2025-06-20 12:08 | disposition home or self-care (01) ==
PROVIDERS: Emergency Provider Emergency Medicine; PCP Nurse Practitioner Family
DX: I12.9 Hypertensive chronic kidney disease with stage 1 through stage 4 chronic kidney disease, or unspecified chronic kidney disease (principal); E11.22 Type 2 diabetes mellitus with diabetic chronic kidney disease; N18.30 Chronic kidney disease, stage 3 unspecified
CPT/HCPCS: 36415; 80053; 81001; 83605; 83735; 84484; 85025; 93005; 99284